=== PATIENT | female | born 1950 | race Caucasian/White ===

== ENCOUNTER → 2023-01-03 | Outpatient (CLI) | payer BC, SELFPAY ==
--- NOTE | 2023-01-03 09:47 | STRESSREP ---
Stress Test Report Date: 01-03-2023 Procedure: Exercise tolerance test/imaging study Indications: Chest pain; fatigue; PSVT Consent: Per the patient Procedure: The patient exercised on a Slava protocol for 5 minutes and 45 seconds completing Stage I and 2 minutes and 45 seconds of Stage II achieving a peak heart rate of 146 bpm (97% predicted maximal heart rate) with resting blood pressure of 128/84 mmHg and a peak blood pressure 170/72 mmHg and a peak MET capacity of 7 METs. The baseline ECG demonstrated normal sinus rhythm; septal FL of indeterminate age cannot be excluded. The peak exercise ECG demonstrated no obvious ECG changes. There was a rare PAC during exercise. The functional capacity was considered fair. There was no complaint of chest discomfort during exercise or recovery. The examination was discontinued secondary to dyspnea. Impression: 1. Technically adequate (percent predicted maximal heart rate greater than 85%) exercise tolerance test 2. Peak exercise ECG with no obvious ECG changes 3. There was a rare PAC during exercise 4. Nuclear images pending Myocardial perfusion imaging study: Technique: The patient was injected with 11.2 mCi of technetium 99m Cardiolite and subsequently rest SPECT Cardiolite nuclear imaging was obtained in the horizontal long, vertical long, and short axis views. The patient exercised on a Slava protocol for 5 minutes and 45 seconds completing Stage I and 2 minutes and 45 seconds of Stage II achieving a peak heart rate of 146 bpm (97% predicted maximal heart rate) with resting blood pressure of 128/84 mmHg and a peak blood pressure 170/72 mmHg and a peak MET capacity of 7 METs. The patient was injected with 34.1 mCi of technetium 99m Cardiolite and subsequently stress SPECT Cardiolite nuclear imaging was obtained in the horizontal long, vertical long, and short axis views. A gated Cardiolite study at peak stress was obtained. Interpretation: Rest and stress SPECT Cardiolite nuclear imaging status post realignment, normalization, and attenuation correction, demonstrates the appearance of relative uniform tracer uptake and myocardial perfusion appearing within normal limits. There is end systolic thickening and brightening. The gated Cardiolite study demonstrates myocardial thickening and inward wall motion. The reported LVEF is 76%. Impression: 1. Rest and stress SPECT Cardiolite nuclear imaging demonstrate relative uniform tracer uptake and myocardial perfusion appearing within normal limits. 2. The gated Cardiolite study reports an LVEF of 76%. This note was generated with [email or web address] software. It may contain incorrect words, spelling, and punctuation that were not noted in checking the note before signing.
== END | disposition home or self-care (01) ==
PROVIDERS: Referring Provider Internal Medicine Cardiovascular Disease; Visit Provider Internal Medicine Cardiovascular Disease
DX: R07.9 Chest pain, unspecified (principal); I47.1 Supraventricular tachycardia; R53.83 Other fatigue; E78.2 Mixed hyperlipidemia
CPT/HCPCS: 78452; 93017; A9500; A4216